=== PATIENT | female | born 1975 | race Caucasian/White ===

== ENCOUNTER → 2016-03-13 | Outpatient (CLI) | payer MEDICARE, BC ==
--- NOTE | 2016-03-13 17:49 | CONS ---
DATE OF CONSULTATION: DATE: CONSULTATION/NEW PATIENT EVALUATION HISTORY OF PRESENT ILLNESS/SLEEP-WAKE EVALUATION: 40-year-old lady who has been evaluated in the sleep center for possible obstructive sleep apnea/hypopnea syndrome. SLEEP SCHEDULE: Patient usual sleep schedule is around 2 or 3:00 a.m. and get out of bed around 11:00 a.m. FALLING ASLEEP: She does have problem with falling asleep. Has a TV set in bedroom. During sleep: Usually sleeps on the side position. According to her mother, she snores and has episodes of stopped breathing during the sleep. She wakes up with gasping for air usually once at night with nocturia. DURING THE DAY/WAKE STATE: In the morning he wakes up tired, falling asleep during the day, has problems with memory, concentration, irritability, and [place] Sleepiness Scale significantly increased to 15. PAST MEDICAL HISTORY: Positive for hip arthritis. 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 MEDICATIONS: Aspirin. SOCIAL HISTORY: Negative for smoking or using alcohol. REVIEW OF SYSTEMS: Snoring, awakenings from sleep, sleepiness during the day. No fevers. No double vision. No recent chest pain. No shortness of breath. No abdominal pain. No bleeding episodes. No blood in urine. No seizure episodes. Family history of arthritis, snoring. PHYSICAL EXAMINATION: During physical exam, a 40-year-old lady without distress. BP 162/101, HR 104, RR 16. Height 5 feet 5 inches. Weight 236, body mass index 39.2. Neck 15-3/4 inches in circumference. Temperature 97.8. Oxygen saturation at room air 99%. Patient has some difficulties with walking. HEENT: PERRLA, EOMI oropharynx low position all of soft palate. Slight restriction of nasal breathing. NECK: Supple. No JVD. Thyroid is not palpable. LUNGS: Clear to percussion and to auscultation. Good air exchange. No wheezing or rhonchi. HEART: S1, S2 regular. No murmurs, gallops or rubs. ABDOMEN: Obese. Soft and nontender. Bowel sounds are present. No organomegaly appreciated. EXTREMITIES: No clubbing or cyanosis. CAPITAL CAMPAIGN FUNDRAISER: Awake, alert, and oriented x3. Cranial nerves 2 to 7 intact. There is no fasciculation or atrophy noted. No focal deficits observed. IMPRESSION: 1. Snoring, witnessed episodes of stopped breathing during sleep, low position of soft palate, awakenings from sleep with gasping for air, obstructive sleep apneas, sleepiness, obstructive sleep apnea-hypopnea syndrome. 2. Obesity; body mass index 39.3. 3. Status post bilateral hip surgery in childhood. 4. Hip arthritis. 5. Hypertension in the office today. PLAN: 1. Polysomnography for evaluation of patient's breathing during sleep. 2. CPAP/BiPAP titration if sleep study confirms obstructive sleep apnea-hypopnea syndrome. 3. Preferable position during sleep on the side. 4. No driving if patient feels any sleepiness. Patient is aware of civil and criminal liability for unsafe driving. 5. I will see patient for follow-up visit to explain results of the testing and following plan. Sincerely, Alcides Ortiz MD, PhD, FAASM. Diplomat of [place] Board of Sleep Medicine, Sleep Medicine Board by [place] Board of Medical Specialities [place] Board of Internal Medicine Biofuels Technology Manager of [facility] [place]
== END | disposition home or self-care (01) ==
LOC: SLEEP 11:30
PROVIDERS: ATTEND Internal Medicine
DX: G47.33 Obstructive sleep apnea (adult) (pediatric) (principal); G47.10 Hypersomnia, unspecified; E66.9 Obesity, unspecified; M16.10 Unilateral primary osteoarthritis, unspecified hip; I10 Essential (primary) hypertension; Z79.82 Long term (current) use of aspirin; Z68.39 Body mass index [BMI] 39.0-39.9, adult
CPT/HCPCS: 99211

== ENCOUNTER → 2016-10-02 | Outpatient (CLI) | payer MEDICARE, BC ==
--- NOTE | 2016-10-03 10:00 | PN ---
DATE OF SERVICE: 10/02/16 40 -year-old lady has been followed in the sleep center for treatment of extremely severe obstructive sleep apnea/hypopnea syndrome. I discussed results of sleep studies with the patient in details. Extremely severe obstructive sleep apnea with apnea/hypopnea index 81.7 by results of home sleep apnea test. She was started on treatment with auto PAP and successfully able to use it. I checked her auto PAP unit pressures 5 to 20 cm water. CPAP pressure 12.8 cm. Usage 29 out of 30 nights for more than 4 hours. Apnea/hypopnea index on auto PAP only 2.2. Today, [place] sleep scale is 6. The patient sleeps better during CPAP and feels better during the day. No sleepiness during the day. PHYSICAL EXAM: GENERAL: A pleasant patient without any distress. VITAL SIGNS: BP 155/83, HR 102, RR 16, weight 240, Temp 98.0, oxygen saturation on room air 96%. HEENT: PERRLA, EOMI. Evaluation of oropharynx shows low position of soft palate. Tongue protrudes midline. NECK: Supple. No JVD. Thyroid is not palpable. LUNGS: Clear to auscultation and percussion. Good air exchange. No wheezing or rhonchi. HEART: S1, S2 regular. No murmurs, gallops or rubs. ABDOMEN: Obese. Soft, nontender. Bowel sounds are present. No organomegaly appreciated. EXTREMITIES: No clubbing or cyanosis. HVAC SHEET METAL INSTALLER HELPER: Awake, alert and oriented times three. Cranial nerves 2 to 7 intact. There is no fasciculation or atrophy noted. No focal deficits observed. IMPRESSION: 1. Severe obstructive sleep apnea/hypopnea syndrome, apnea/hypopnea index 81.7 with oxygen desaturation to 52% on control with auto PAP. 2. Obesity. 3. Status post bilateral hip surgery. 4. Hypertension in the office. PLAN: 1. Continue treatment with auto PAP every night for the whole night. 2. Losing weight. 3. Sleep hygiene with regular time in bed for at least 8 hours. 4. Follow-up visit in ten months. Sincerely, Alcides Ortiz MD, PhD, FAASM Diplomat of [place] Board of Sleep Medicine. Sleep Medicine Board by [place] Board [employer] Medical Specialities [place] Board of Internal Medicine [employer] Police Officer of [facility] [place] [facility]
== END ==
LOC: SLEEP 14:59
PROVIDERS: ATTEND Internal Medicine
DX: G47.33 Obstructive sleep apnea (adult) (pediatric) (principal); E66.9 Obesity, unspecified; I10 Essential (primary) hypertension; Z98.890 Other specified postprocedural states

== ENCOUNTER → 2017-06-04 | Outpatient (CLI) | payer MEDICARE ==
--- NOTE | 2017-06-04 15:01 | SFUN ---
SLEEP CENTER FOLLOW UP NOTE DATE OF SERVICE: 06/04/2017 A 41-year-old lady has been followed in Sleep Center for treatment of obstructive sleep apnea-hypopnea syndrome. Patient continues successfully to use her equipment without significant problem every night without snoring. [place] Sleepiness Scale is 4. I checked her CPAP unit. Usage is 100% of the time more than 4 hours, average usage is 8.7 hours. Pressure in the machine in the range of 12.6, is in automatic regimen 5-20. Leak is 30 L/minute which is acceptable. Apnea-hypopnea index is only 2.2, which is totally normal. MEDICATIONS: None. PHYSICAL EXAM: GENERAL Patient in no distress. VITAL SIGNS BP 148/89, HR 100, RR 18, height 5 feet 5-1/2 inches, weight 239.6, BMI 39.1. Her weight is about the same as during previous visit. Temperature 98.1, oxygen saturation on room air 98%. HEENT PERRLA, EOMI, evaluation of oropharynx showed moderately low position of soft palate. NECK Supple, no JVD. Thyroid is not palpable. LUNGS Clear to percussion and to auscultation. Good air exchange. No wheezing or rhonchi. HEART S1, S2 regular. No murmurs, gallops, or rubs. ABDOMEN Slightly obese. Soft and nontender. Bowel sounds are present. No organomegaly appreciated. EXTREMITIES No clubbing or cyanosis. COMPILATION CLERK Awake, alert, and oriented X3. Cranial nerves 2 to 7 intact. There is no fasciculation or atrophy. noted. No focal deficits observed. IMPRESSION: 1. Severe obstructive sleep apnea-hypopnea syndrome apnea-hypopnea index 81.7 with oxygen desaturation to 52% on full control with auto PAP, most of the time pressure is 12.6 cm of water. 2. Obesity. 3. Status post bilateral hip surgery. 4. Increasing blood pressure in the office. PLAN: 1. Continue treatment with CPAP every night. 2. Losing weight. 3. Sleep hygiene with time in bed for at least 8 hours. 4. No driving if feeling any sleepiness. The patient does not drive. 5. Low-sodium diet. 6. Monitoring blood pressure. Sincerely, Alcides Ortiz MD, PhD, FAASM Diplomat of [employer] Board of Medical Specialties Cong[place]ese Board of Internal Medicine Mannequin Wig Maker of [facility] [place] MMODL / IJReagan: [id number] /
== END | disposition home or self-care (01) ==
LOC: SLEEP 13:16
PROVIDERS: ATTEND Internal Medicine
DX: G47.33 Obstructive sleep apnea (adult) (pediatric) (principal); E66.9 Obesity, unspecified; R03.0 Elevated blood-pressure reading, without diagnosis of hypertension; Z98.890 Other specified postprocedural states; Z99.89 Dependence on other enabling machines and devices

== ENCOUNTER → 2017-10-01 | Outpatient (CLI) | payer MEDICARE ==
--- NOTE | 2017-10-01 14:49 | PN ---
PROGRESS NOTE DATE OF SERVICE: 10/04/2017 41-year-old lady who has been followed in Sleep Center for treatment of obstructive sleep apnea-hypopnea syndrome. Patient successfully continued to use her CPAP equipment without significant problems. Sleeps with her CPAP machine without snoring. [place] Sleepiness Scale today is only 3. I checked her CPAP unit. Usage is 100% of the time with average 8.7 hours. Pressure is in the range 5 to 20 after medical regimen. Most of the time pressure is in the range of 11.7 cm of water. Leak is 31 L/minute for last month, which is borderline. Apnea- hypopnea index only 1.7, which is totally normal. MEDICATIONS: None. PHYSICAL EXAM: GENERAL Patient in no distress. VITAL SIGNS BP 140/65, HR 93, RR 18, height 5 feet 5 inches, weight 217.4, body mass index 36.1, temperature 98.2, oxygen saturation on room air 100%. HEENT PERRLA, EOMI, evaluation of oropharynx showed moderately low position of soft palate. NECK Supple, no JVD. Thyroid is not palpable. LUNGS Clear to percussion and to auscultation. Good air exchange. No wheezing or rhonchi. HEART S1, S2 regular. No murmurs, gallops, or rubs. ABDOMEN Soft and nontender. Bowel sounds are present. No organomegaly appreciated. EXTREMITIES No clubbing or cyanosis. RATE MANAGER Awake, alert, and oriented X3. Cranial nerves 2 to 7 intact. There is no fasciculation or atrophy. noted. No focal deficits observed. IMPRESSION: 1. Severe obstructive sleep apnea-hypopnea syndrome on full control with CPAP. The patient demonstrated great compliance with treatment benefitting from treatment. 2. Status post bilateral hip surgery. 3. Mild obesity, body mass index 36.1. 4. The patient was found to have abnormalities on her jaw x-ray in the dentist's office. PLAN: 1. Continue treatment with CPAP every night for the whole night. 2. Watching and losing weight. 3. Sleep hygiene with regular time in bed for at least 8 hours[address] Patient [address] not [address]. 5. Follow up evaluation of abnormalities, which were found on x-ray in the dentist's office. I believe the first step is to discuss these results with the radiologist and primary care physician. Thank you very much for allowing me to participate in management of your patient. Sincerely, Alcides Ortiz MD, PhD, FAASM Diplomat of [place] Board of Medical Specialties [place] Board of Internal Medicine Restaurant Hourly Manager of [facility] [place] MMLUCY / EDWARD: [id number] /
== END | disposition home or self-care (01) ==
LOC: SLEEP 13:09
PROVIDERS: ATTEND Internal Medicine
DX: G47.33 Obstructive sleep apnea (adult) (pediatric) (principal); E66.9 Obesity, unspecified; Z68.36 Body mass index [BMI] 36.0-36.9, adult; Z96.643 Presence of artificial hip joint, bilateral; Z99.89 Dependence on other enabling machines and devices

== ENCOUNTER → 2017-12-11 | Outpatient (CLI) | payer MEDICARE ==
--- NOTE | 2017-12-11 13:48 | CT ---
EXAMINATION TYPE: CT soft tissue neck w con DATE OF EXAM: 12/11/2017 HISTORY: Neck tenderness. COMPARISON: NONE CT DLP: 596.8 mGycm. Automated Exposure Control for Dose Reduction was Utilized. TECHNIQUE: CT scan of the neck is performed with IV Contrast, patient injected with 100 mL of Isovue 300, axial images are obtained, coronal and sagittal reformatted images are reviewed. FINDINGS: Airway: Airway is patent. Valleculae and piriform sinuses are unremarkable. Numerous large dystrophic calcified tonsilliths are seen bilaterally. Fossa of Rosenmuller and torus tubarius are unremarkable . True and false focal cords are overall symmetric. Parotid/submandibular glands: Solitary calculus is seen within the anterior left superficial lobe of the parotid without ductal dilatation. Remainder of the parotid and submandibular glands are unremark able. Carotid/Vascular Structures: There is a conventional three-vessel branch pattern of the aortic arch. Visualized carotid and vertebral systems appear patent. Osseous Structures: Very mild multilevel degenerative changes of the cervical spine are seen. Visuali zed paranasal sinuses and mastoid air cells are well aerated. Other: There is heterogeneity of the thyroid parenchyma, particularly within the right lobe on image 34. No discrete measurable nodule is seen. IMPRESSION: 1. Multiple large bilateral tonsilliths. 2. Solitary nonobstructing left parotid calculus of the superficial gland with no ductal dilatation o r evidence of sialoadenitis. 2. Slight heterogeneity of the right thyroid gland. Thyroid ultrasound could assess for nodule or hyp ervascularity in thyroiditis if there is further clinical concern. Correlation with serum laboratory values is also recommended.
== END ==
LOC: RADCTMAIN 12:07
PROVIDERS: ATTEND Otolaryngology
DX: K11.5 Sialolithiasis (principal)
CPT/HCPCS: 70491; Q9967

== ENCOUNTER → 2018-06-03 | Outpatient (CLI) | payer MEDICARE ==
--- NOTE | 2018-06-03 14:03 | SFUN ---
SLEEP CENTER FOLLOW UP NOTE DATE OF SERVICE: 06/03/2018 A 42-year-old lady who has been followed in the Sleep Center for treatment of obstructive sleep apnea-hypopnea syndrome. Patient successfully continued to use her CPAP equipment every night for the whole night without problems, getting all necessary supplies. No snoring with the machine. No significant sleepiness. [place] Sleepiness Scale is 6. I checked her CPAP unit, pressure in the range 5-20 but all time pressure is 11.1 cm of water. Usage is 100% of the time, 30/30 nights more than 4 hours. Average usage is 7.1 hour. Quite significant leak 41 L/minute, but at the same time, apnea-hypopnea index total is normal only 1.1. MEDICATIONS: None. PHYSICAL EXAM: Patient in no distress. BP 133/77, HR 98, RR 16, height 5 foot 1/2 inches, weight 210 pounds, body mass index 34.4, temperature 98.1, oxygen saturation at room air 98%. OROPHARYNX: Moderately low position of soft palate. Neck Supple, no JVD. Thyroid is not palpable. LUNGS Clear to percussion and to auscultation. Good air exchange. No wheezing or rhonchi. HEART S1, S2 regular. No murmurs, gallops, or rubs. ABDOMEN Soft and nontender. Bowel sounds are present. No organomegaly appreciated. EXTREMITIES No clubbing or cyanosis. DIPLOMA MAKER Awake, alert, and oriented X3. Cranial nerves 2 to 7 intact. There is no fasciculation or atrophy. noted. No focal deficits observed. IMPRESSION: 1. Severe obstructive sleep apnea-hypopnea syndrome on full control with CPAP. Patient demonstrated 100% compliance with treatment, benefitting from treatment. 2. Status post bilateral hip surgery. 3. Mild obesity, body mass index 34.4. Patient lost 7 pounds since previous visit. 4. Salivary gland stone. PLAN: 1. We will maintain all prescriptions for CPAP supplies including mask, tube, filters. 2. Patient will continue to use CPAP equipment every night for the whole night. 3. Watching weight. 4. Sleep hygiene in bed for at least 7-1/2 - 8 hours. 5[address] Patient does not drive. Thank you very much for allowing me to participate in the management of your patient. Sincerely, Alcides Ortiz MD, PhD, FAASM Diplomat of French Board of Medical Specialties French Board of Internal Medicine Technology Resource Teacher of [facility] [place] MMLUCY / FATIMAHN: [id number] /
== END ==
LOC: SLEEP 13:08
PROVIDERS: ATTEND Internal Medicine
DX: G47.33 Obstructive sleep apnea (adult) (pediatric) (principal); E66.9 Obesity, unspecified; K11.5 Sialolithiasis; Z68.34 Body mass index [BMI] 34.0-34.9, adult; Z99.89 Dependence on other enabling machines and devices; Z98.890 Other specified postprocedural states

== ENCOUNTER → 2019-08-10 | Outpatient (CLI) | payer MEDICARE ==
--- NOTE | 2019-08-10 22:25 | SFUN ---
SLEEP CENTER FOLLOW UP NOTE DATE OF SERVICE: 08/10/2019 This patient is a 43-year-old lady who has been followed in the sleep center for treatment of obstructive sleep apnea-hypopnea syndrome. Patient successfully continues to use her equipment every night. She sleeps well. No snoring with the machine. [place] Sleepiness Scale today is 6. I checked the patient's CPAP unit. Range of the pressure is from 5 to 20, average pressure 11.9, usage 29/30 nights for more than 4 hours, which is great compliance. Average usage is 6.7 hours per night. Leak is 32 L/minutes, which is slightly increased. Apnea-hypopnea index at the same time is absolutely normal, only 1.3. CURRENT MEDICATIONS: Vitamins. PHYSICAL EXAMINATION: GENERAL: A pleasant lady without distress. VITAL SIGNS: BP 125/86, HR 86, RR 16, height 5 feet 5-1/2 inches, weight 225, BMI 36.8, afebrile. Oxygen saturation at room air 98%. HEENT: PERRLA, EOMI. Evaluation of oropharynx showed tongue protrudes midline. Moderately low position of soft palate. NECK: Supple. No JVD. Thyroid is not palpable. LUNGS: Clear to percussion and to auscultation. Good air exchange. No wheezing or rhonchi. HEART: S1, S2 regular. No murmurs, gallops or rubs. ABDOMEN: Obese. EXTREMITIES: No clubbing or cyanosis. PROPOSITION PLAYER: Awake, alert, and oriented X3. Cranial nerves 2 to 7 intact. There is no fasciculation or atrophy. noted. No focal deficits observed. IMPRESSION: 1. Severe obstructive sleep apnea-hypopnea syndrome, fully under control with CPAP. The patient demonstrated great compliance with treatment, benefitting from treatment. 2. Status post bilateral hip surgery. 3. Obesity. The patient's weight increased by 15 pounds since her previous visit. 4. History of salivary gland stone. PLAN: 1. Patient will continue to use her CPAP equipment every night for the whole night. 2. Watching and losing weight. 3. Sleep hygiene with regular time in bed for 7-1/2 to 8 hours[address] Patient [address] 5. Prescription for all necessary CPAP supplies, including mask, tube, filters. 6. Follow-up visit in one year, or earlier if patient has any problems. Thank you very much for allowing me to participate in the management of your patient. Sincerely, Alcides Ortiz MD, PhD, FAASM Diplomat of [place] Board of Medical Specialties [place] Board of Internal Medicine Corset Fitter of [facility] [place] ELIAS / EDWARD: [id number] /
== END | disposition home or self-care (01) ==
LOC: SLEEP 13:54
PROVIDERS: ATTEND Internal Medicine
DX: G47.33 Obstructive sleep apnea (adult) (pediatric) (principal); E66.9 Obesity, unspecified; Z68.36 Body mass index [BMI] 36.0-36.9, adult; Z85.818 Personal history of malignant neoplasm of other sites of lip, oral cavity, and pharynx; Z96.643 Presence of artificial hip joint, bilateral; Z79.899 Other long term (current) drug therapy; Z87.19 Personal history of other diseases of the digestive system

== ENCOUNTER → 2020-08-20 | Outpatient (CLI) | payer MEDICARE ==
[2020-08-20 14:43] LABS: Basophils # (A) 0.1 k/uL (0-0.2); Basophils % (A) 2 %; Eosinophils # (A) 0.2 k/uL (0-0.7); Eosinophils % (A) 3 %; HCT 43.6 % (34.0-46.0); HGB 14.3 gm/dL (11.4-16.0); Lymphocytes % (A) 30 %; MCH 29.8 pg (25.0-35.0); MCHC 32.7 g/dL (31.0-37.0); Mean Platelet Volume 6.6; Monocytes # (A) 0.5 k/uL (0-1.0); Monocytes % (A) 8 %; Neutrophils # (A) 3.7 k/uL (1.3-7.7); Neutrophils % (A) 55 %; Platelet Count 379 k/uL (150-450); RBC 4.79 m/uL (3.80-5.40); RDW 12.4 % (11.5-15.5); WBC 6.8 k/uL (3.8-10.6)
[2020-08-20 14:46] LABS: Prothrombin Time 10.5 sec (9.0-12.0)
[2020-08-20 15:02] LABS: Potassium 5.5 mmol/L (3.5-5.1)
== END | disposition home or self-care (01) ==
LOC: LABPAT 13:07
PROVIDERS: ATTEND Orthopaedic Surgery
DX: Z01.812 Encounter for preprocedural laboratory examination (principal); Z01.810 Encounter for preprocedural cardiovascular examination; M17.11 Unilateral primary osteoarthritis, right knee
CPT/HCPCS: 36415; 80051; 85025; 85610; 93005

== ENCOUNTER → 2020-08-30 | Outpatient (CLI) | payer MEDICARE | END | disposition home or self-care (01) | LOC: LABPAT 14:52 | PROVIDERS: ATTEND Orthopaedic Surgery | DX: Z01.812 Encounter for preprocedural laboratory examination (principal); M17.11 Unilateral primary osteoarthritis, right knee | CPT/HCPCS: 87070 ==

== ENCOUNTER 2020-09-03 10:44 | Day surgery (SDC) | payer MEDICARE ==
[2020-08-29 11:33] VITALS: BMI 36.6
--- NOTE | 2020-09-02 12:05 | HP ---
HISTORY AND PHYSICAL REASON FOR ADMISSION: Surgery scheduled for 09/03/2020 Richelle Murphy is a 44-year-old patient seen with symptomatic right knee osteoarthritis. We discussed options for treatment. She elected to proceed with right total knee arthroplasty. Consent was obtained. PAST MEDICAL HISTORY: Noncontributory. SURGICAL HISTORY: Anxiety. DAILY MEDICATIONS: None. ALLERGIES: None. SOCIAL HISTORY: Denies tobacco use. PHYSICAL EVALUATION OF THE RIGHT KNEE: Range of motion is -20 to 75, mild effusion, tenderness, lateral joint line crepitus, lateral patellofemoral compartments. Pain with patellofemoral compression. Ligaments stable. Hip rotation without pain. Distal neurovascular exam is intact. RADIOGRAPHS: Radiographs of the right knee reveal severe lateral compartment osteoarthritis. IMPRESSION: Right knee osteoarthritis. PLAN: Right total knee arthroplasty. Surgery is scheduled for 09/03/2020. MMODL / IJN: [id number] /
[~2020-09-03 10:44] MED LIST: ACETAMINOPHEN TAB 500 MG TAB PO PRN; DEXAMETHASONE SOD PHOSPHATE 4 MG/ML 1 ML VIAL IV ONE; LIDOCAINE 1% (10MG/ML) FOR IV START INTRADERMA PRN; MELOXICAM 7.5 MG TAB PO PRN; MIDAZOLAM 2 MG/2 ML VIAL IV PRN; ONDANSETRON 4 MG/2 ML VIAL IVP ONE; ONDANSETRON 4 MG/2 ML VIAL IVP PRN; ROPIVACAINE/EPI/CLONIDINE/KET 50 ML SYRINGE MISCELLANE PRN; TRANEXAMIC ACID 1,000 MG in SODIUM CHLORIDE 0.9% 100 ML IVPB PRN
[2020-09-03] MEDS ORDERED: fentaNYL (PF) 50 MCG/ML 2 ML AMP IVP ONE ×2 (12:05→12:17)
[2020-09-03] MEDS ORDERED: MIDAZOLAM 2 MG/2 ML VIAL IVP ONE (12:05)
[2020-09-03] MEDS: LACTATED RINGERS 1,000 ML IV SCH ×4 (12:10→22:40)
[2020-09-03] MEDS ORDERED: MIDAZOLAM 2 MG/2 ML VIAL ONE (13:32)
[2020-09-03] MEDS ORDERED: ROPIVACAINE 5 MG/ML 30 ML VIAL ONE (13:32)
[2020-09-03] MEDS ORDERED: fentaNYL (PF) 50 MCG/ML 2 ML AMP ONE (13:32)
[2020-09-03] MEDS ORDERED: TRANEXAMIC ACID 1,000 MG/10 ML VIAL ONE (13:32)
[2020-09-03] MEDS ORDERED: DEXAMETHASONE SOD PHOSPHATE 4 MG/ML 1 ML VIAL ONE (13:32)
[2020-09-03] MEDS ORDERED: SODIUM CHLORIDE 0.9% 100 ML BAG ONE (13:32)
[2020-09-03] MEDS ORDERED: PROPOFOL 10 MG/ML 20 ML VIAL IV ONE (13:32)
[2020-09-03] MEDS ORDERED: ceFAZolin 1,000 MG in SODIUM CHLORIDE 0.9% 1,000 ML IRRIGATION ONE (14:17)
--- NOTE | 2020-09-03 15:25 | P.ANPRN ---
Procedure Note - Anesthesia - Nerve Block Performed Right Adductor Canal Infusion Time Out Performed: Yes Date of Procedure: 09/03/20 Procedure Start Time: 11:59 Procedure Stop Time: 12:07 Location of Patient: PreOp Indication: Acute Post-Operative Pain, Dx/Pain Location, Requested by Surgeon Specifically requested for management of pain by : Jesse Marie Sedation Type: Sedate with meaningful contact maintained Preparation: Sterile Prep, Sterile Dressing Position: Supine Catheter Depth at Skin (cm): 7 Catheter: Indwelling Needle Types: Pajunk Needle Gauge: 21 Ultrasound used to visualize needle placement: Yes Ultrasound used to observe medication spread: Yes Injectate: 0.5% Ropivacaine (see comment for volume) Blood Aspirated: No Pain Paresthesia on Injection Noted: No Resistance on Injection: Normal Image Stored and Saved: Yes Events: Uneventful and Well Tolerated (20cc 0.5% ropivacaine with 4mg dexamathasone)
--- NOTE | 2020-09-03 15:27 | P.ANPRN ---
Procedure Note - Anesthesia - Nerve Block Performed Right Jabarick Single Time Out Performed: Yes Date of Procedure: 09/03/20 Procedure Start Time: 12:08 Procedure Stop Time: 12:13 Location of Patient: PreOp Indication: Acute Post-Operative Pain, Dx/Pain Location, Requested by Surgeon Specifically requested for management of pain by DrEmelina: Jesse Marie Sedation Type: Sedate with meaningful contact maintained Preparation: Sterile Prep Position: Supine Catheter: None Needle Types: Prim Laundry Needle Gauge: 21 Ultrasound used to visualize needle placement: Yes Ultrasound used to observe medication spread: Yes Injectate: 0.5% Ropivacaine (see comment for volume) Blood Aspirated: No Pain Paresthesia on Injection Noted: No Resistance on Injection: Normal Image Stored and Saved: Yes Events: Uneventful and Well Tolerated (15cc 0.5% ropivacaine with 4mg dexamethasone)
[2020-09-03] MEDS ORDERED: LACTATED RINGERS 1,000 ML IV ONE (15:38)
--- NOTE | 2020-09-03 15:39 | P.OP ---
Date of Procedure: 09/03/20 Preoperative Diagnosis: Right knee osteoarthritis Postoperative Diagnosis: Right knee osteoarthritis Procedure(s) Performed: Right total knee arthroplasty Implants: 1. Depuy attne size 5 narrow cruciate retaining cemented femur 2. Depuy attune size 5 fixed bearing cemented tibial baseplate 3. Depuy attune size 5 fixed bearing cruciate retaining 7 mm polyethylene tibial insert 4. Depuy attune 35mm all polyethylene cemented patella Anesthesia: regional (Adductor canal catheter, Ipack block), spinal Surgeon: Jesse Marie Extension Supervisor #1: Parmjit Moon Estimated Blood Loss (ml): 45 Pathology: other (Bone) Condition: stable Disposition: PACU Indications for Procedure: 44-year-old patient seen with symptomatic right knee osteoarthritis with a fixed flexion contracture and valgus deformity. I recommended total knee arthroplasty. Mother was agreeable as she was the guardian and consent was obtained. Operative Findings: See description of procedure Description of Procedure: Patient was taken to the operative suite after having an adductor canal catheter placed by the department of anesthesia as well as and Ipack block for postoperative pain management. Patient underwent a spinal anesthetic by the department of anesthesia. Patient was given preoperative IV intake antibiotics and TXA. A well-padded tourniquet was placed about the right right lower ext remity. The lower extremity was then prepped and draped in the normal sterile orthopedic fashion. The extremity was elevated, a tourniquet was insufflated to 300. A standard anterior incision was made sharply through skin. Dissection was taken down through the subcutaneous soft tissues down to the extensor mechanism. A medial arthrotomy was performed, patella was everted and knee was flexed. There was advanced osteoarthritis noted as well as a fixed valgus deformity and a flexion contracture. I performed a lateral release. I introduced my distal intramedullary femoral drill. I then introduced the distal femoral cutting jig. Jean-Pierre JOHNSON secured the cutting jig with 2 pins. I held retractors in position while Jean-Pierre JOHNSON performed the distal femoral resection through the guide area we now removed her distal femoral cutting guide. We now placed our 4-in-1 femoral cutting block and positioned and it was secured with 2 pins by Jean-Pierre JOHNSON while I held the block in position. The distal femoral finishing was now completed. A proximal tibial cutting guide was positioned. I held the guide in the appropriate position with both hands well Jean-Pierre JOHNSON inserted stabilizing pins into the guide. Proximal tibial cut was made. We now placed a trial femoral component into position, along with an appropriate size tibial tray and insert. We now took the knee through range of motion and had full extension good flexion and good overall soft tissue balance noted. The patella was everted and stabilized with 2 towel clips held by Jean-Pierre JOHNSON while I performed a flush with patellar quad tendon utilizing a fresh sawblade. We templated the patella, appropriate drill holes were made. An appropriate trial patella was positioned, knee was taken through full range of motion with the patella tracking very nicely. The trial patella was removed. Drill holes were made through the femoral component. All trial components were removed after marking off the appropriate rotation of the tibia. Retractors were now positioned along the proximal tibia. An appropriate keel punch was made with the appropriate size tibial guide by myself on Jean-Pierre JOHNSON assisted by holding retractors. At this point appropriate size implants were chosen and opened. The joint was irrigated copiously with pulse lavage mechanical irrigation. The posterior capsule was infiltrated with local analgesic. The wound was irrigated with pulse lavage mechanical irrigation. We mixed antibiotic methylmethacrylate. We placed the knee into flexion. We placed multiple retractors assisted by Jean-Pierre JOHNSON to expose the proximal tibia. Once the methyl methacrylate was ready, the tibial component was cemented into place removing any excess methylmethacrylate form by both myself and Jean-Pierre JOHNSON. The femoral component was cemented into place removing the removing any excess methylmethacrylate performed by both myself and Jean-Pierre JOHNSON. We then inserted the appropriate size polyethylene tibial insert. We made sure that it was locked into position. We took the knee into full extension, and then back in a flexion making sure we had removed any excess methylmethacrylate. The patellar component was then cemented down and secured with clamp. Excess methylmethacrylate removed. We kept the knee in full extension, patellar clamp in position until methylmethacrylate had hardened. Once it had hardened the patellar clamp was removed. The knee was taken through full range of motion. The patella tracked nicely. There was good soft tissue balancing. The tourniquet was now released. Additional hemostasis was achieved via electrocautery. A second gram of TXA was given. The wound again was irrigated with pulse lavage mechanical irrigation. The extensor mechanism was repaired with Ethibond. We checked the repair with range of motion and it was stable. The subcutaneous soft tissues were repaired with Vicryl in layers. The skin was approximated with pernio/Dermabond. Sterile dressings were applied followed by loose web roll and Tj bandage. The patient was transferred to a bed, and taken to recovery in stable and satisfactory condition. Jean-Pierre JOHNSON assisted with this complex procedure.
[2020-09-03] MEDS ORDERED: HYDROmorphone 0.5 MG/0.5 ML SYRINGE IVP PRN ×2 (15:40)
[2020-09-03] MEDS ORDERED: ONDANSETRON 4 MG/2 ML VIAL IVP PRN (15:40)
[2020-09-03] MEDS ORDERED: HYDROmorphone 1 MG/ML 1 ML SYRINGE IVP PRN (15:40)
[2020-09-03] MEDS ORDERED: HYDROcodone/APAP 5-325MG 1 EACH TAB PO PRN ×2 (15:40)
[2020-09-03] MEDS ORDERED: NALOXONE 0.4 MG/ML 1 ML VIAL IV PRN (15:40)
[2020-09-03] MEDS ORDERED: ROPIVACAINE 0.2%-NS ON-Q PUMP 1,090 MG, EMPTY PAIN BALL 1 EACH MISCELLANE PRN (15:55)
[2020-09-03] MEDS: HYDROmorphone 0.5 MG/0.5 ML SYRINGE IVP PRN ×2 (16:05→16:25)
[2020-09-03] MEDS ORDERED: diphenhydrAMINE 50 MG/ML 1 ML VIAL ONE (16:13)
[2020-09-03] MEDS ORDERED: diphenhydrAMINE 50 MG/ML 1 ML VIAL IVP ONE (16:15)
--- NOTE | 2020-09-03 16:19 | XR ---
EXAMINATION TYPE: XR knee limited RT DATE OF EXAM: 09/03/2020 CLINICAL HISTORY: Postoperative evaluation Two views of the right knee are submitted. Identified are changes of total knee arthroplasty with femoral and tibial components appearing well seated. Postsurgical soft tissue changes are noted. Alignment is anatomic.
[2020-09-03] MEDS ORDERED: MEPERIDINE 50 MG/ML SYRINGE IVP ONE (16:27)
[2020-09-03] MEDS: ENOXAPARIN 30 MG/0.3 ML SYRINGE SQ SCH (19:34)
[2020-09-03 19:50] VITALS: RESP 18
[2020-09-03] MEDS ORDERED: SENNOSIDES-DOCUSATE SODIUM 1 EACH TAB PO SCH (21:00)
--- NOTE | 2020-09-04 00:40 | P.CONS ---
History of Present Illness - Reason for Consult Consult date: 09/04/20 - History of Present Illness Patient is a 44-year-old female with a PMH of knee osteoarthritis and obstructive sleep apnea on CPAP at home who was admitted to the hospital for an elective right total knee replacement. The patient underwent the procedure earlier today and was seen postoperatively on the surgical unit. There were no immediate postoperative complications reported. Patient noted excellent control of her pain, currently her to attend. The patient had not been out of bed as of yet. She also reported not having passed flatus or having used the restroom. She denied additional complaints. She denied fever, chills, chest pain, shortness of breath, nausea, vomiting. Denied abdominal pain, diarrhea, weakness, numbness, tingling. Review of systems: Pertinent positives and negatives as discussed in HPI, a complete review of systems was performed and all other systems are negative. Physical examination: General: non toxic, no distress, appears at stated age, obese Derm: no unusual rashes/lesions no unusual ecchymoses, warm, dry Head: atraumatic, normocephalic, symmetric Eyes: EOMI, no lid lag, anicteric sclera, pupils equal round reactive to light ENT: Nose and ears atraumatic, no thrush, no pharyngeal erythema Neck: No thyromegaly, no cervical lymphadenopathy, trachea midline, supple Mouth: no lip lesion, mucus membranes moist Cardiovascular: S1S2 reg, no murmur, positive posterior tibial pulse bilateral, no edema, capillary refill less than 2 seconds Lungs: CTA bilateral, no rhonchi, no rales , no accessory muscle use Abdominal: soft, nontender to palpation, no guarding, no appreciable organomegaly, normal bowel sounds Ext: no gross muscle atrophy, muscle strength 5 out of 5 in all extremities grossly except right lower extremity due to pain, distal right lower extremity strength 5 out of 5 no contractures, right knee Tj bandage in place Neuro: CN II-XI grossly intact, light touch intact all 4 extremities, finger to nose within normal limits, Psych: Alert, oriented, appropriate affect Assessment/plan Obstructive sleep apnea -The patient had her CPAP at her bedside which she was advised to use tonight Status post right total knee replacement -Defer management including pain control and DVT prophylaxis to primary orthopedic surgery service Past Medical History Past Medical History: Osteoarthritis (OA), Sleep Apnea/CPAP/BIPAP Additional Past Medical History / Comment(s): received J&J covid vaccine,mom is legal guardian developementally disabled,uses a cpap History of Any Multi-Drug Resistant Organisms: None Reported Additional Past Surgical History / Comment(s): rosario hips displaced put back into "sockets as a child Past Anesthesia/Blood Transfusion Reactions: No Reported Reaction Past Psychological History: No Psychological Hx Reported Smoking Status: Never smoker Past Alcohol Use History: None Reported Past Drug Use History: None Reported - Past Family History Mother Family Medical History: Hypertension Medications and Allergies Home Medications Medication Instructions Recorded Confirmed Type Cholecalciferol [Vitamin D3 (25 25 mcg PO DAILY 08/31/20 08/31/20 History Mcg = 1000 Iu)] L.acidoph,Paracasei, B.lactis 1 each PO DAILY 08/31/20 08/31/20 History [Probiotic] Multivitamins, Thera [Multivitamin 1 tab PO DAILY 08/31/20 08/31/20 History (formulary)] Turmeric Root Extract [Turmeric] 500 mg PO DAILY 08/31/20 08/31/20 History Allergies Allergy/AdvReac Type Severity Reaction Status Date / Time No Known Allergies Allergy Verified 09/03/20 11:10 Physical Exam Vitals: Vital Signs Temp Pulse Pulse Resp BP Pulse Ox 09/03/20 19:49 98.5 F 96 18 122/73 09/03/20 19:30 82 147/91 100 09/03/20 19:20 83 129/68 99 09/03/20 19:00 80 131/74 100 09/03/20 18:45 77 127/80 100 09/03/20 18:30 76 137/90 100 09/03/20 18:15 79 125/76 09/03/20 18:00 80 127/75 97 09/03/20 17:45 74 127/69 100 09/03/20 17:30 80 135/96 98 09/03/20 17:15 96.0 F L 73 18 133/87 96 09/03/20 16:46 78 16 125/81 94 L 09/03/20 16:30 73 16 143/67 95 09/03/20 16:15 84 16 139/91 96 09/03/20 16:00 74 16 122/83 97 09/03/20 15:53 97.0 F L 78 12 128/67 95 09/03/20 12:25 83 16 146/75 100 09/03/20 11:17 97.4 F L 89 16 146/75 100 Intake and Output 09/03/20 09/03/20 09/03/20 06:59 14:59 22:59 Intake Total 851 400 Output Total 45 Balance 851 355 Intake: IV 851 400 Output: Estimated Blood Loss 45 Other: Weight 94.9 kg 94.9 kg
[2020-09-04 07:42] VITALS: BP 123/75; PULSE 89; TEMP 98.7
[2020-09-04] MEDS: ENOXAPARIN 30 MG/0.3 ML SYRINGE SQ SCH (08:06)
--- NOTE | 2020-09-04 08:35 | P.PN ---
Progress Note - Text Progress Note Date: 09/04/20 Patient POD #1 s/p right total knee arthroplasty. Patient received adductor canal catheter for post operative pain control. Patients pain is well controlled with catheter infusion and oral pain medicine. Continue infusion until finished. No complications from procedure.
--- NOTE | 2020-09-04 09:35 | P.PN ---
Subjective Progress Note Date: 09/04/20 Principal diagnosis: knee pain Patient is a 44-year-old female with a past medical history of osteoarthritis, developmental delay, and sleep apnea with CPAP use who presented for elective right total knee replacement. She tolerated the procedure well without any immediate postoperative complications. Patient seen and examined at bedside. She complains of some knee pain but it is controlled with her medications, she is going to the back. She denies any nausea, vomiting, or diarrhea. General: non toxic, no distress, appears at stated age Derm: warm, dry Head: atraumatic, normocephalic, symmetric Eyes: EOMI, no lid lag, anicteric sclera Mouth: no lip lesion, mucus membranes moist Cardiovascular: S1S2 reg, no murmur, positive posterior tibial pulse bilateral, Lungs: CTA bilateral, no rhonchi, no rales , no accessory muscle use Abdominal: soft, nontender to palpation, no guarding, no appreciable organomegaly Ext: no gross muscle atrophy, no edema, no contractures Neuro: CN II-XI grossly intact, no focal neuro deficits Psych: Alert, oriented, flat affect Obstructive sleep apnea -CPAP Development of the leg -Supportive care Osteoarthritis -Status post right total knee replacement -Pain control -PT OT -Orthopedic recommendations Medically optimized for discharge if hemoglobin greater than 9. Med rec has been addressed. Objective - Vital Signs Vital signs: Vital Signs Temp 98.7 F 09/04/20 07:42 Pulse 89 09/04/20 07:42 Resp 18 09/04/20 07:42 BP 123/75 09/04/20 07:42 Pulse Ox 98 09/04/20 07:42 Intake & Output 09/03/20 09/04/20 09/04/20 18:59 06:59 18:59 Intake Total 1251 Output Total 45 Balance 1206 Weight 94.9 kg Intake: IV 1251 Output: Estimated Blood Loss 45 Other: # Voids 2
--- NOTE | 2020-09-04 12:40 | P.DS ---
Providers Date of admission: 09/03/2020 Expected date of discharge: 09/04/20 Attending physician: Jesse Marie Consults: 09/03/20 15:40 Consult Physician Routine Consulting Provider: Pavan Rain Consult Reason/Comments: Medical management Do you want consulting provider notified?: Yes Primary care physician: [facility] Course: Date of admission: 09/03/2020 Date of discharge: 09/04/2020 Admission diagnosis: Right knee osteoarthritis Discharge diagnosis: Same Attending physician: Dr. Marie Surgical procedures: Right total knee arthroplasty Brief history: Patient is a 44-year-old female with a history of progressive primary right knee osteoarthritis. At this point patient has failed conservative treatment measures and has opted to proceed with a elective right total knee arthroplasty. Hospital course: Details of patient's surgery can be found in operative report. Patient tolerated the procedure well and was subsequently transported to orthopedic floor. Patient's orthopedic and medical care was provided daily. Patient had daily laboratory tests performed for evaluation of overall blood counts . Patient had daily physical therapy to include strengthening range of motion as well as education with walker ambulation. Patient was treated with Lovenox for their postoperative DVT prophylaxis during their inpatient stay. Patient was noted to have a relatively uneventful postoperative course. Patient reported satisfactory pain control with oral pain medications by postoperative day 1. Patient showed satisfactory progress with physical therapy. Patient moved steadily through the program and had no difficulty meeting the goals by postoperative day 1. Given patient's otherwise satisfactory course and having met physical therapy goals, plan is to discharge patient home on postoperative day 1. Discharge condition/disposition: Patient will be discharged home in stable condition. Discharge medications: Instructions are given on resumption of patient's normal daily medications per primary care recommendation, in addition patient will be prescribed [place] 5 mg/325 mg; aspirin 81 mg twice a day 30 days; Colace. Discharge instructions: 1. Wound care and infection precautions, keep incision dry and covered while showering, no lotions, creams, moisturizers. No soaking, tubs, pools, hottubs. Do not scrub over the incision. 2. Weight-bear as tolerated with walker / cane until follow-up. 3. Ice and elevate when necessary. Do not exceed 20 minutes per hour with ice pack. 4. Utilize compression sleeve until seen at first follow up appointment. 5. Visiting nursing care. 6. Home physical therapy including home CPM. 7. Pain meds and anticoagulants per prescription. 8. Pain medication has potential to cause constipation. Increase oral fluid and fiber intake. Contact primary care provider if you have not had a bowel movement within 48 hours after discharge 9. No anti-inflammatory medication until discussed at first post operative visit, this including Motrin, Aleve, Mobic, Diclofenac. 10. Follow up in office at 2 weeks postop with Jean-Pierre Moon PA-C / Eulalio Marx PA-C 11. Follow up with your primary care doctor 7-10 days after discharge. 12. Contact [facility] with any questions, . Assessment: Right knee osteoarthritis Procedures: Right total knee arthroplasty Patient Condition at Discharge: Good Plan - Discharge Summary Discharge Rx Participant: No New Discharge Prescriptions: New Docusate [Colace] 100 mg PO DAILY #30 capsule HYDROcodone/APAP 5-325MG [[place] 5-325] 1 tab PO Q6HR PRN #36 tab PRN Reason: Pain Aspirin [Adult Low Dose Aspirin EC] 81 mg PO BID #60 tablet.dr Kaba Cholecalciferol [Vitamin D3 (25 Mcg = 1000 Iu)] 25 mcg PO DAILY Turmeric Root Extract [Turmeric] 500 mg PO DAILY Multivitamins, Thera [Multivitamin (formulary)] 1 tab PO DAILY L.acidoph,Paracasei, B.lactis [Probiotic] 1 each PO DAILY Discharge Medication List Cholecalciferol [Vitamin D3 (25 Mcg = 1000 Iu)] 25 mcg PO DAILY 08/31/20 [History] L.acidoph,Paracasei, B.lactis [Probiotic] 1 each PO DAILY 08/31/20 [History] Multivitamins, Thera [Multivitamin (formulary)] 1 tab PO DAILY 08/31/20 [History] Turmeric Root Extract [Turmeric] 500 mg PO DAILY 08/31/20 [History] Aspirin [Adult Low Dose Aspirin EC] 81 mg PO BID #60 tablet. 09/04/20 [Rx] Docusate [Colace] 100 mg PO DAILY #30 capsule 09/04/20 [Rx] HYDROcodone/APAP 5-325MG [[place] 5-325] 1 tab PO Q6HR PRN #36 tab 09/04/20 [Rx] Follow up Appointment(s)/Referral(s): [facility] [NON-STAFF] - (*Please call [place] once home to arrange delivery of Continous Passive Motion (CPM) machine. ) Abril Alcala, RADHA [Primary Care Provider] - 1 Week [facility], [NON-STAFF] - ([facility] will call you to set up the time for your first home visit on 09/05/20.) Parmjit Moon PAC [PHYSICIAN FUR GRADER] - 2 Weeks Activity/Diet/Wound Care/Special Instructions: Orthopedic Discharge Instructions: 1. Wound care and infection precautions, keep incision dry and covered while showering, no lotions, creams, moisturizers. No soaking, pools, hot tubs. Do not scrub over incision. 2. Weight-bear as tolerated with walker / cane until follow-up. 3. Ice and elevate when necessary. Do not exceed 20 minutes per hour with ice pack. 4. Utilize compression sleeve until seen at first follow up appointment. 5. Pain meds and anticoagulants per prescription. 6. Pain medication has potential to cause constipation. Increase oral fluid and fiber intake. Contact primary care provider if you have not had a bowel movement within 48 hours after discharge. 7. No anti-inflammatory medication until discussed at first post operative visit, this including Motrin, Aleve, Mobic, Diclofenac. 8. Follow up in office at 2 weeks postop with Jean-Pierre Moon PA-C / Eulalio Marx PA-C 9. Follow up with your primary care doctor 7-10 days after discharge. 10. Contact [facility] with any questions, . Please keep silver foam dressing on for first 7-10 days. While showering, use Saran wrap over silver foam dressing. Dressing may be removed after 7 to 10 days. Discharge Disposition: HOME WITH HOME HEALTH SERVICES
--- NOTE | 2020-09-04 12:52 | P.PN ---
Subjective Progress Note Date: 09/04/20 Principal diagnosis: Right knee osteoarthritis Patient was seen at bedside this morning. Patient was sitting up in chair with legs elevated. Patient says she is in a moderate amount of pain this morning. She says she didn't get up with physical therapy and walk around the room into the bathroom. Patient says she has mostly pain diffusely over the knee. Patient says she has been using incentive spirometer throughout the morning. Patient says she has been passing gas, but she has not had a bowel movement yet. Patient does live at home with mom. Patient has chest pain, fever, chest breath, nausea, vomiting, change in vision, loss of bowel/bladder control, saddle anesthesia. Objective - Vital Signs Vital signs: Vital Signs Temp 98.7 F 09/04/20 07:42 Pulse 89 09/04/20 08:00 Resp 18 09/04/20 08:00 BP 123/75 09/04/20 07:42 Pulse Ox 98 09/04/20 07:42 Intake & Output 09/03/20 09/04/20 09/04/20 18:59 06:59 18:59 Intake Total 1251 Output Total 45 Balance 1206 Weight 94.9 kg Intake: IV 1251 Output: Estimated Blood Loss 45 Other: # Voids 2 - Exam Right knee: Incision is clean, dry, and intact. The exofin fusion tape is in good condition. There is minimal soft tissue swelling and ecchymosis surrounding the medial and lateral aspects of the incision. Calf is soft, no tenderness with palpation. Plantar flexion, dorsiflexion, EHL, FHL are intact. Sensory exam to light touch throughout the extremity is intact, dorsal pedis pulses 2+. Assessment and Plan Assessment: Right knee osteoarthritis Plan: 1. Right knee osteoarthritis - right total knee arthroplasty performed yesterday, 09/03/2020; patient stable this morning plan discharge today to home. 2. Pain management - stable at this time. Going home with [place] 5 mg/325 mg 3. Appreciate medical management 4. DVT ppx/GI ppx - Lovenox and Senna in-hospital; going home with aspirin 81 mg twice a day 30 days and Colace 5. PT/OT - weightbearing as tolerated; walker for assistance 6. Encourage incentive spirometer use 7. Discharge planning - plan discharge home, today, 09/04/2020 Time with Patient: Less than 30
[2020-09-04 12:55] LABS: HCT 41.3 % (37.2-46.3); HGB 13.4 g/dL (12.0-15.0); MCHC 32.4 g/dL (32.0-37.0); MCV 92.4 fL (80.0-97.0); Mean Platelet Volume 9.2 fL (9.5-12.2); Platelet Count 386 X 10*3/uL (140-440); RBC 4.47 X 10*6/uL (4.10-5.20); RDW 11.9 % (11.5-14.5); WBC 14.24 X 10*3/uL (4.50-10.00)
[2020-09-04 14:25] LABS: Basophils # (A) 0.02 X 10*3/uL (0.00-0.10); Basophils % (A) 0.1 %; Eosinophils # (A) 0.01 X 10*3/uL (0.04-0.35); Eosinophils % (A) 0.1 %; Lymphocytes % (A) 12.6 %; Monocytes % (A) 11.2 %; Neutrophils # (A) 10.77 X 10*3/uL (1.80-7.70); Neutrophils % (A) 75.7 %
== END 2020-09-04 14:32 | disposition home health service (06) ==
LOC: OR 10:44 → EEVIPCON 12:30 → 4SSUR 16:31 → OR 09-04 14:32
PROVIDERS: ATTEND Orthopaedic Surgery
DX: M17.11 Unilateral primary osteoarthritis, right knee (principal); F41.9 Anxiety disorder, unspecified; G47.33 Obstructive sleep apnea (adult) (pediatric); F79 Unspecified intellectual disabilities; Z98.890 Other specified postprocedural states; R07.9 Chest pain, unspecified; E66.9 Obesity, unspecified; Z68.33 Body mass index [BMI] 33.0-33.9, adult
CPT/HCPCS: 97161; 64999; 64448; 76942; 85025; 88300; 73560; 27447; C1776; C1713 ×2; J2250; J1200; J1100; J2175; J0690 ×3; J2405; J3010; J1650; J1170 ×2; J2795 ×2; J2704

== ENCOUNTER 2021-01-07 08:29 | Day surgery (SDC) | payer MEDICARE ==
[2020-12-31 11:28] VITALS: BMI 34.3
--- NOTE | 2021-01-06 12:45 | HP ---
HISTORY AND PHYSICAL REASON FOR ADMISSION: Surgery scheduled for 01/07/2021 HISTORY OF PRESENT ILLNESS: Richelle Murphy is a 45-year-old patient previously having undergone right total knee arthroplasty. She was seen with persistent adhesions of the right knee. We discussed manipulation under anesthesia with the patient and her mother. They were agreeable. Consent was obtained. PAST MEDICAL HISTORY: Noncontributory. PAST SURGICAL HISTORY: Right total knee arthroplasty. DAILY MEDICATIONS: None. ALLERGIES: None. SOCIAL HISTORY: She denies tobacco use. PHYSICAL EVALUATION OF THE RIGHT KNEE: The anterior incision well healed. Range of motion -2/3 to 90. Ligaments stable. Hip rotation without pain. RADIOGRAPHS: Radiographs of the right knee reveal stable appearing total knee arthroplasty. IMPRESSION: 1. Right knee adhesions. 2. Right total knee arthroplasty. PLAN: Manipulation under anesthesia right knee. ELIAS / FATIMAHN: [id number] /
[~2021-01-07 08:29] MED LIST changes: -ACETAMINOPHEN TAB 500 MG TAB PO PRN; +LACTATED RINGERS 1,000 ML IV SCH; -MELOXICAM 7.5 MG TAB PO PRN; -ONDANSETRON 4 MG/2 ML VIAL IVP PRN; -ROPIVACAINE/EPI/CLONIDINE/KET 50 ML SYRINGE MISCELLANE PRN; -TRANEXAMIC ACID 1,000 MG in SODIUM CHLORIDE 0.9% 100 ML IVPB PRN
[2021-01-07] MEDS ORDERED: PROPOFOL 10 MG/ML 20 ML VIAL IV ONE (09:40)
[2021-01-07] MEDS ORDERED: fentaNYL (PF) 50 MCG/ML 2 ML AMP ONE (09:40)
--- NOTE | 2021-01-07 09:49 | P.OP ---
Date of Procedure: 01/07/21 Preoperative Diagnosis: Right knee adhesions Postoperative Diagnosis: Right knee adhesions Procedure(s) Performed: Manipulation under anesthesia right knee Anesthesia: MAC Surgeon: Jesse Marie Estimated Blood Loss (ml): 0 Pathology: none sent Condition: stable Disposition: PACU Indications for Procedure: 45-year-old patient seen with persistent right knee adhesions this previous total knee arthroplasty. After discussing treatment options, she and her mother elected to proceed with manipulation under anesthesia right knee. Consent was obtained. Operative Findings: See description of procedure Description of Procedure: The patient was taken to monitored anesthesia area. She underwent IV sedation by the department of anesthesia. Once sufficient anesthesia was noted I performed a manipulation of the right knee achieving near full extension and 135 of flexion with audible tearing of the adhesions. The patient tolerated procedure well and was awakened in stable condition.
[2021-01-07] MEDS: HYDROmorphone 0.5 MG/0.5 ML SYRINGE IVP PRN ×4 (09:52→10:33)
[2021-01-07 09:58] VITALS: RESP 16; TEMP 98
[2021-01-07] MEDS ORDERED: KETOROLAC 30 MG/ML 1 ML VIAL ONE (10:35)
[2021-01-07] MEDS ORDERED: KETOROLAC 15 MG/ML 1 ML VIAL IVP ONE (10:37)
[2021-01-07 11:21] VITALS: BP 118/74; PULSE 68
== END 2021-01-07 11:44 | disposition home or self-care (01) ==
LOC: OR 08:29
PROVIDERS: ATTEND Orthopaedic Surgery
DX: M23.8X1 Other internal derangements of right knee (principal); Z96.651 Presence of right artificial knee joint; G47.33 Obstructive sleep apnea (adult) (pediatric); F81.81 Disorder of written expression; Q89.9 Congenital malformation, unspecified
CPT/HCPCS: 27570; 81025; J1100; J2405; J3010; J1885; J2704; J1170

== ENCOUNTER → 2021-04-24 | Outpatient (CLI) | payer MEDICARE ==
--- NOTE | 2021-04-24 18:17 | SFUN ---
SLEEP CENTER FOLLOW UP NOTE DATE OF SERVICE: 04/24/2021 This 45-year-old lady has been followed in Sleep Center for treatment of obstructive sleep apnea-hypopnea syndrome. The patient continues to use her CPAP equipment every night for the whole night. I did not see her since the middle of 2019 because of the COVID situation and she was not able to come. She needs to replace her CPAP supplies. She is using a small-sized AirFit NF10 nasal mask. [place] Sleepiness Scale is 3, which is normal. I checked her CPAP unit. Range of the pressure is 5 to 14, average pressure 11.9. Usage is 30/30 nights for more than 4 hours, average 8.1 hours per night. Leak is 24 L/minute, which is borderline. Apnea-hypopnea index is 1.5, which is totally normal. MEDICATIONS: Aspirin on p.r.n. basis, according to the patient. PHYSICAL EXAMINATION: GENERAL: Pleasant patient in no distress. VITAL SIGNS: BP 137/83, HR 82, RR 16, weight 226 pounds, height 5 feet 5-1/2 inches, temperature 97.6, oxygen saturation at room air 100%. HEENT: PERRLA, EOMI, evaluation of oropharynx showed tongue protrudes midline. Moderately low position of soft palate; Mallampati III. NECK: Supple, no JVD. Thyroid is not palpable. LUNGS: Clear to percussion and to auscultation. Good air exchange. No wheezing or rhonchi. HEART: S1, S2 regular. No murmurs, gallops, or rubs. ABDOMEN: Obese. EXTREMITIES: No clubbing or cyanosis. PC MAINTENANCE TECHNICIAN: Awake, alert, and oriented X3. Cranial nerves 2 to 7 intact. There is no fasciculation or atrophy. noted. No focal deficits observed. IMPRESSION: 1. Obstructive sleep apnea-hypopnea syndrome in severe range. The patient demonstrated 100% compliance with treatment, benefitting from treatment. Normal respiration on CPAP. 2. Status post bilateral hip surgery. 3. Obesity. Weight is about the same as two years ago. 4. History of salivary gland stone. PLAN: 1. Patient will continue to use PAP equipment every night for the whole night. 2. Sleep hygiene with regular time in bed for at least 7-1/2 to 8 hours. 3. Precautions related to driving. No driving if feeling sleepiness. 4. I will maintain all necessary prescription for PAP supplies including mask, tube, filters. 5. Watching weight. 6. Follow-up visit in 6 months or earlier if patient has any problems. Thank you very much for allowing me to participate in the management of your patient. Sincerely, Alcides Ortiz MD, PhD, FAASM Diplomat of [employer] [employer] Sleep Medicine Board of [place] [employer] Medicine Long Distance Operator of [facility] [place] MMLUCY / FATIMAHN: [id number] /
== END | disposition home or self-care (01) ==
LOC: SLEEP 10:59
PROVIDERS: ATTEND Internal Medicine
DX: G47.33 Obstructive sleep apnea (adult) (pediatric) (principal); E66.9 Obesity, unspecified; Z86.39 Personal history of other endocrine, nutritional and metabolic disease

== ENCOUNTER → 2021-10-24 | Outpatient (CLI) | payer MEDICARE ==
--- NOTE | 2021-10-24 11:32 | P.PN ---
Subjective DATE: 10/24/2021 FOLLOW UP VISIT. Patient with obstructive sleep apnea hypopnea syndrome return to sleep center for follow-up visit. Information from previous visit have been reviewed. Patient is using PAP equipment every night for the whole night, getting PAP supplies in time. The patient does not have significant problems with the mask, PAP unit and humidification. [place] sleepiness scale is slightly increased to 13. I checked PAP unit. PAP unit pressure 5-14, average 11.7 cm H2O. Usage is 100 % for more then 4 hours, average 7.7 hours per night. Leak is 30 l/m, which is in acceptable range. Apnea Hypopnea Index is 0.8, which is normal. MEDICATIONS:1. Aspirin as needed During physical exam: GENERAL: A pleasant patient without any distress. VITAL SIGNS: BP 135/86, HR 72, RR 16, weight 225.8, about the same as it during previous visit, temperature 97.2, oxygen saturation at room air 100 % . HEENT: PERRLA, EOMI.low position of soft palate, Mallapati 3 . NECK: Supple. No JVD. LUNGS: Clear to percussion and to auscultation. Good air exchange. No wheezing or rhonchi. HEART: S1, S2 regular. ABDOMEN: Soft and nontender.[] EXTREMITIES: No clubbing or cyanosis. FITNESS TRAINER: Awake, alert, and oriented x3. No focal deficit. Impressions: 1. Obstructive sleep apnea-hypopnea syndrome. Patient demonstrated great compliance with treatment, benefiting from treatment. 2. A mild obesity. 3. Status post bilateral hip surgery. 4. History of salivary gland stone. Plan: 1. Continue using PAP equipment every night for the whole night. 2. To change air filter at least 1-2 times per month. 3. PAP unit should stay lower then position of the head. 4. Advised patient to remove all remaining water from humidifier canister daily and make it dry after each usage. Refill canister with fresh distilled water before each usage. 5. Sleep hygiene with regular time in bed for at least 8 hours. 6. Precautions related to driving. No driving if feel any sleepiness. 7. I will maintain prescription for PAP supplies including mask, tube, filters. 8. Follow up visit in 6 months or earlier if patient has any problems. 9. Watching weight. Thank you very much for allowing me to participate in the management of your patient. Alcides Stefadu, MD, PhD, FAASM. Diplomat of [place] Medicine, Sleep Medicine Board by [employer] Medicine Gliding Pilot Instructor of [facility] [place]
== END | disposition home or self-care (01) ==
LOC: SLEEP 11:00
PROVIDERS: ATTEND Internal Medicine
DX: G47.33 Obstructive sleep apnea (adult) (pediatric) (principal)
CPT/HCPCS: 99212

== ENCOUNTER → 2022-05-07 | Outpatient (CLI) | payer MEDICARE ==
--- NOTE | 2022-05-07 13:28 | P.PN ---
Subjective DATE: 05/07/2022 FOLLOW UP VISIT. Patient with obstructive sleep apnea hypopnea syndrome return to sleep center for follow-up visit. Information from previous visit have been reviewed. Patient is using PAP equipment every night for the whole night, getting PAP supplies in time. The patient does not have significant problems with the mask, PAP unit and humidification. [place] sleepiness scale is 1 which is perfect. I checked information from PAP unit and discussed it with patient and family. PAP unit pressure 5-14, average 11.3 cm H2O. Usage is 100 % for more then 4 hours, average 7.7 hours per night. Leak is 20 l/m, which is in acceptable range. Apnea Hypopnea Index is 0.6, which is totally normal. MEDICATIONS: None During physical exam: GENERAL: A pleasant patient without any distress. VITAL SIGNS: BP 136/82, HR 84, RR 16, weight 225.6, temperature 97.6, oxygen saturation at room air 100 % . HEENT: PERRLA, EOMI.low position of soft palate, Mallapati 3. NECK: Supple. No JVD. LUNGS: Clear to percussion and to auscultation. Good air exchange. No wheezing or rhonchi. HEART: S1, S2 regular. ABDOMEN: Soft and nontender. Slightly obese EXTREMITIES: No clubbing or cyanosis. WELDER JOURNEYMAN: Awake, alert, and oriented x3. No focal deficit. Impressions: 1. Obstructive sleep apnea-hypopnea syndrome. Patient demonstrated great compliance with treatment, benefiting from treatment. 2. Status post bilateral hip surgery. 3. Mild obesity, no changes of weight comparing with previous visit. 4. History of salivary gland stone. Plan: 1. Continue using PAP equipment every night for the whole night. 2. To change air filter at least 1-2 times per month. 3. PAP unit should stay lower then position of the head. 4. Advised patient to remove all remaining water from humidifier canister daily and make it dry after each usage. Refill canister with fresh distilled water before each usage. 5. Sleep hygiene with regular time in bed for at least 8 hours. 6. Precautions related to driving. No driving if feel any sleepiness. 7. I will maintain prescription for PAP supplies including mask, tube, filters. 8. Watching and losing weight. 9. Follow up visit in 6 months or earlier if patient has any problems. Thank you very much for allowing me to participate in the management of your pa tieroldan. Alcides Ortiz MD, PhD, FAASM. Diplomat of [place] Board [employer] Sleep Medicine, Sleep Medicine Board by [place] [employer] Medicine M[employer] Automobile Carpets of [facility] [place]
== END ==
LOC: SLEEP 13:03
PROVIDERS: ATTEND Internal Medicine
DX: G47.33 Obstructive sleep apnea (adult) (pediatric) (principal); E66.9 Obesity, unspecified; K11.5 Sialolithiasis; Z99.89 Dependence on other enabling machines and devices; Z96.643 Presence of artificial hip joint, bilateral
CPT/HCPCS: 99212

== ENCOUNTER → 2022-10-27 | Outpatient (CLI) | payer MEDICARE ==
--- NOTE | 2022-10-27 13:39 | P.PN ---
Subjective DATE: 10/27/2022 FOLLOW UP VISIT. Patient with obstructive sleep apnea hypopnea syndrome return to sleep center for follow-up visit. Information from previous visit have been reviewed. Patient is using PAP equipment every night for the whole night, getting PAP supplies in time. The patient does not have significant problems with the mask, PAP unit and humidification. [place] sleepiness scale is 1. I checked information from PAP unit. PAP unit pressure 5-14, average 10.6 cm H2O. Usage is 100 % for more then 4 hours, average 7.2 hours per night. Leak is 26 l/m, which is in acceptable range. Apnea Hypopnea Index is 0.7, which is normal. MEDICATIONS: None During physical exam: GENERAL: A pleasant patient without any distress. VITAL SIGNS: BP 134/83, HR 81, RR 16 , weight 216.4, temperature 98.2, oxygen saturation at room air 97 % . HEENT: PERRLA, EOMI.low position of soft palate, Mallapati 3 . NECK: Supple. No JVD. LUNGS: Clear to percussion and to auscultation. Good air exchange. No wheezing or rhonchi. HEART: S1, S2 regular. ABDOMEN: Soft and nontender. Slightly obese EXTREMITIES: No clubbing or cyanosis. FERTILIZER PROCESSING SUPERVISOR: Awake, alert, and oriented x3. No focal deficit. Impressions: 1. Obstructive sleep apnea-hypopnea syndrome. Patient demonstrated great compliance with treatment, benefiting from treatment. 2. Mild obesity, patient lost 9 pounds comparing with previous visit. 3. Status post bilateral hip surgery. 4. History of salivary gland stone. Plan: 1. Continue using PAP equipment every night for the whole night. 2. To change air filter at least 1-2 times per month. 3. PAP unit should stay lower then position of the head. 4. Advised patient to remove all remaining water from humidifier canister daily and make it dry after each usage. Refill canister with fresh distilled water before each usage. 5. Sleep hygiene with regular time in bed for at least 8 hours. 6. Precautions related to driving. No driving if feel any sleepiness. 7. I will maintain prescription for PAP supplies including mask, tube, filters. 8. Follow up visit in 6 months or earlier if patient has any problems. 9. Watching and continue losing weight. Thank you very much for allowing me to participate in the management of your patient. Alcides Ortiz MD, PhD, FAASM. Diplomat of [place] Board of [employer] Medicine, Sleep Medicine Board by [place] [employer] of Internal Medicine Sharepoint Net Developer of [facility] [place]
== END ==
LOC: 3 N SLEEP 13:10
PROVIDERS: ATTEND Internal Medicine
DX: G47.33 Obstructive sleep apnea (adult) (pediatric) (principal); E66.9 Obesity, unspecified; K11.5 Sialolithiasis; Z98.890 Other specified postprocedural states; Z96.643 Presence of artificial hip joint, bilateral; Z99.89 Dependence on other enabling machines and devices
CPT/HCPCS: 99212

== ENCOUNTER → 2022-11-28 | Outpatient (CLI) | payer MEDICARE, BC | LOC: 3 N SLEEP 13:01 | PROVIDERS: ATTEND Internal Medicine | DX: G47.33 Obstructive sleep apnea (adult) (pediatric) (principal) ==

== ENCOUNTER → 2023-05-07 | Outpatient (CLI) | payer MEDICARE, BC ==
[2023-05-07 14:52] VITALS: BP 122/80; PULSE 80; RESP 16; TEMP 98.4
--- NOTE | 2023-05-07 15:10 | P.PN ---
Subjective DATE: 05/07/2023 FOLLOW UP VISIT. Patient with obstructive sleep apnea hypopnea syndrome return to sleep center for follow-up visit. Information from previous visit have been reviewed. Patient is using PAP equipment every night for the whole night, getting PAP supplies in time. The patient does not have significant problems with the mask, PAP unit and humidification. [place] sleepiness scale is 2, which is perfect. I checked information from PAP unit. PAP unit pressure 5-14, average 10.4 cm H2O. Usage is 100% for more then 4 hours, average 7.3 hours per night. Leak is increased to 47 l/m. Apnea Hypopnea Index is 0.7, which is normal. MEDICATIONS:1. Multivitamins During physical exam: GENERAL: A pleasant patient without any distress. VITAL SIGNS: Please see below. HEENT: PERRLA, EOMI.low position of soft palate, Mallapati 3 . NECK: Supple. No JVD. LUNGS: Clear to percussion and to auscultation. Good air exchange. No wheezing or rhonchi. HEART: S1, S2 regular. ABDOMEN: Soft and nontender.[] EXTREMITIES: No clubbing or cyanosis. RECREATION PROGRAM COORDINATOR: Awake, alert, and oriented x3. No focal deficit. Impressions: 1. Obstructive sleep apnea-hypopnea syndrome. Patient demonstrated great compliance with treatment, benefiting from treatment. 2. Obesity, BMI 34.0, patient lost 8 pounds comparing with the previous visit. 3. Status post bilateral hip surgery. 4. History of salivary gland stone. Plan: 1. Continue using PAP equipment every night for the whole night. 2. To change air filter at least 1-2 times per month. 3. PAP unit should stay lower then position of the head. 4. Advised patient to remove all remaining water from humidifier canister daily and make it dry after each usage. Refill canister with fresh distilled water before each usage. 5. Sleep hygiene with regular time in bed for at least 8 hours. 6. Precautions related to driving. No driving if feel any sleepiness. 7. I will maintain prescription for PAP supplies including mask, tube, filters. 8. Watching weight. 9. Follow up visit in 6 months or earlier if patient has any problems. Thank you very much for allowing me to participate in the management of your patient. Alcides Ortiz MD, PhD, FAASM. Diplomat of [place] Board of Sleep Medicine, Sleep Medicine Board by [employer] Board of Internal Medicine Metal Machine Setter of [facility] [place] Objective - Vital Signs Vital signs: Vital Signs Temp 98.4 F 05/07/23 14:48 Pulse 80 05/07/23 14:48 Resp 16 05/07/23 14:48 BP 122/80 05/07/23 14:48 Pulse Ox 100 05/07/23 14:48 FiO2 Intake & Output 05/06/23 05/07/23 05/07/23 18:59 06:59 18:59 Weight 94.347 kg
== END ==
LOC: 3 N SLEEP 13:55
PROVIDERS: ATTEND Internal Medicine
DX: G47.33 Obstructive sleep apnea (adult) (pediatric) (principal); E66.9 Obesity, unspecified; Z98.890 Other specified postprocedural states; Z99.89 Dependence on other enabling machines and devices; Z86.69 Personal history of other diseases of the nervous system and sense organs; Z68.34 Body mass index [BMI] 34.0-34.9, adult
CPT/HCPCS: 99212

== ENCOUNTER → 2023-11-26 | Outpatient (CLI) | payer MEDICARE, BC ==
[2023-11-26 13:16] VITALS: BP 136/83; PULSE 90; RESP 16; TEMP 98
--- NOTE | 2023-11-26 13:27 | P.PROGSL ---
Subjective DATE: 11/26/2023 FOLLOW UP VISIT. Patient with obstructive sleep apnea hypopnea syndrome return to sleep center for follow-up visit. Information from previous visit have been reviewed. Patient is using PAP equipment every night for the whole night, getting PAP supplies in time. The patient does not have significant problems with the mask, PAP unit and humidification. [place] sleepiness scale is 9, which is acceptable. I checked information from PAP unit. PAP unit pressure 5-14, average 8.3 cm H2O. Usage is 100% for more then 4 hours, average 7.3 hours per night. Leak is increased to 58 l/m. Apnea Hypopnea Index is 1.3, which is normal. MEDICATIONS have been reviewed, please see below. During physical exam: GENERAL: A pleasant patient without any distress. VITAL SIGNS: Please see below, weight is 205 lbs. HEENT: PERRLA, EOMI.low position of soft palate, Mallapati 3. NECK: Supple. No JVD. LUNGS: Clear to percussion and to auscultation. Good air exchange. No wheezing or rhonchi. HEART: S1, S2 regular. ABDOMEN: Soft and nontender. Slightly obese EXTREMITIES: No clubbing or cyanosis. PRODUCTION ADMINISTRATOR: Awake, alert, and oriented x3. No focal deficit. Impressions: 1. Obstructive sleep apnea-hypopnea syndrome. Patient demonstrated great compliance with treatment, benefiting from treatment. 2. Obesity in mild range, BMI 33.7. 3. Status post bilateral hip surgery. 4. History of salivary gland stone. Plan: 1. Continue using PAP equipment every night for the whole night. 2. Sleep hygiene with regular time in bed for at least 7.5-8 hours 3. PAP unit should stay lower then position of the head. 4. Advised patient to remove all remaining water from humidifier canister daily and make it dry after each usage. Refill canister with fresh distilled water before each usage. 5. Watching and losing weight. 6. Precautions related to driving. No driving if feel any sleepiness. 7. I will maintain prescription for PAP supplies including mask, tube, filters. 8. Follow up visit in 6-8 months or earlier if patient has any problems. Thank you very much for allowing me to participate in the management of your patient. Alcides Ortiz MD, PhD, FAASM. Diplomat of [place] Board of Sleep Medicine, Sleep Medicine Board by [place] Board of Internal Medicine Addiction Counselor of [facility] [place] Objective - Vital Signs Vital Signs: Vital Signs Temp 98.0 F 11/26/23 13:15 Pulse 90 11/26/23 13:15 Resp 16 11/26/23 13:15 BP 136/83 11/26/23 13:15 Pulse Ox 98 11/26/23 13:15 FiO2 Intake & Output 11/25/23 11/26/23 11/26/23 18:59 06:59 18:59 Weight 92.986 kg Home Medications: Home Medications Medication Instructions Recorded Confirmed Type Multivitamins, Thera [Multivitamin 1 tab PO DAILY 08/31/20 11/26/23 History (formulary)]
== END ==
LOC: 3 N SLEEP 13:03
PROVIDERS: ATTEND Internal Medicine
CPT/HCPCS: 99212

== ENCOUNTER → 2024-06-27 | Outpatient (CLI) | payer MEDICARE, BC ==
[2024-06-27 11:48] VITALS: BP 131/85; PULSE 80; RESP 12; TEMP 98.4
--- NOTE | 2024-06-27 12:05 | P.PROGSL ---
Subjective DATE: 06/27/2024 FOLLOW UP VISIT. Patient with obstructive sleep apnea hypopnea syndrome return to sleep center for follow-up visit. Information from previous visit have been reviewed. Patient is using PAP equipment every night for the whole night, getting PAP supplies in time. Patient referred, that the CPAP unit is noisy. [place] sleepiness scale is 4, which is normal. I checked information from PAP unit. Motor life expectancy was exceeded. PAP unit pressure 5-14, average 5 cm H2O. Usage is 100% for more then 4 hours, average 7.2 hours per night. Leak is high 86 l/m. Apnea Hypopnea Index is 1.3, which is normal. MEDICATIONS have been reviewed, please see below. During physical exam: GENERAL: A pleasant patient without any distress. VITAL SIGNS: Please see below, weight is 207 lbs. HEENT: PERRLA, EOMI.low position of soft palate, Mallapati 3. NECK: Supple. No JVD. LUNGS: Clear to percussion and to auscultation. Good air exchange. No wheezing or rhonchi. HEART: S1, S2 regular. ABDOMEN: Soft and nontender.[] EXTREMITIES: No clubbing or cyanosis. MARKER DELIVERY: Awake, alert, and oriented x3. No focal deficit. Impressions: 1. Obstructive sleep apnea-hypopnea syndrome. Patient demonstrated great compliance with treatment, benefiting from treatment. 2. Mild obesity, BMI 33.4. 3. Status post bilateral hip surgery. 4. History of salivary gland stone. Plan: 1. Continue using PAP equipment every night for the whole night. Prescription to replace CPAP unit. Motor life expectancy was exceeded, CPAP unit is noisy. 2. Sleep hygiene with regular time in bed for at least 7.5-8 hours 3. PAP unit should stay lower then position of the head. 4. Advised patient to remove all remaining water from humidifier canister daily and make it dry after each usage. Refill canister with fresh distilled water before each usage. 5. Watching and losing weight. 6. Precautions related to driving. No driving if feel any sleepiness. 7. I will maintain prescription for PAP supplies including mask, tube, filters. 8. Follow up visit in 1-3 months or earlier if patient has any problems to check compliance with new CPAP unit. Thank you very much for allowing me to participate in the management of your patient. Alcides Ortiz MD, PhD, FAASM. Diplomat of [place] Board of Sleep Medicine, Sleep Medicine Board by [place] [employer] Medicine Lay Out Carpenter of [facility] [place] Objective - Vital Signs Vital Signs: Vital Signs Temp 98.4 F 06/27/24 11:45 Pulse 80 06/27/24 11:45 Resp 12 06/27/24 11:45 BP 131/85 06/27/24 11:45 Pulse Ox 98 06/27/24 11:45 FiO2 Intake & Output 06/26/24 06/27/24 06/27/24 18:59 06:59 18:59 Weight 93.894 kg Home Medications: Home Medications Medication Instructions Recorded Confirmed Type Multivitamins, Thera [Multivitamin 1 tab PO DAILY 08/31/20 11/26/23 History (formulary)] Aspirin [[place] Aspirin EC] 81 mg PO DAILY 06/27/24 06/27/24 History
== END ==
LOC: 3 N SLEEP 11:31
PROVIDERS: ATTEND Internal Medicine
DX: G47.33 Obstructive sleep apnea (adult) (pediatric) (principal); E66.9 Obesity, unspecified; Z68.33 Body mass index [BMI] 33.0-33.9, adult; Z98.890 Other specified postprocedural states; Z87.898 Personal history of other specified conditions
CPT/HCPCS: 99212